=== PATIENT | female | born 1935 | race Two or more races ===

== ENCOUNTER 2017-02-18 12:58 | Emergency (ER) | payer MEDICAID, MEDICARE ==
[2017-02-18] MEDS ORDERED: DEXAMETHASONE 10 MG/ML VIAL PO STA (13:51)
[2017-02-18 13:55] VITALS: BP 175/75
[2017-02-18] MEDS ORDERED: DEXAMETHASONE 10 MG/ML VIAL ONE (13:58)
[2017-02-18] MEDS ORDERED: CHERRY SYRUP 10 ML UDC PO ONE (13:58)
--- NOTE | 2017-02-18 14:01 | ED Physician Documentation ---
History of Present Illness - Stated complaint Stated Complaint: L SIDE/LEG PX - Chief complaint Chief Complaint: Back Pain - Additonal information Additional information: hx from pt 82 female lifted a heavy flower pot and felt left low lateral back pain rad down left lateral leg no chest pain no abd pain no dysuria or incontinence no numbness or weakness no known fever - felt warm did not take temp, afebrile here no hx same not [id number] no recent surgery IV meds etc Review of Systems Constitutional: denies: Fever Cardiac: denies: Chest pain / pressure GI: denies: Abdominal Pain : denies: Dysuria, Incontinent Skin: denies: Rash Musculoskeletal: reports: Back pain, Extremity pain (lateral L thigh) Neurologic: denies: Focal weakness, Numbness Endocrine: denies: Easy bruising / bleeding Immunocompromised: denies: Immunocompromised PD PAST MEDICAL HISTORY - Past Medical History Past Medical History: Yes Endocrine/Autoimmune: Type 2 diabetes - Past Surgical History Past Surgical History: Yes General: 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 - Present Medications Home Medications: Ambulatory Orders Medication Instructions Recorded Confirmed Glipizide 2.5 mg PO BID 02/18/17 02/18/17 Lidocaine Patch 5% [Lidoderm Patch] 1 each TOP DAILY PRN #10 patch 02/18/17 Metformin HCl [Metformin HCl ER] 500 mg PO DAILY 02/18/17 02/18/17 predniSONE [Deltasone] 20 mg PO DAILY 5 Days 02/18/17 - Allergies Allergies/Adverse Reactions: Allergies Allergy/AdvReac Type Severity Reaction Status Date / Time No Known Drug Allergies Allergy Verified 02/18/17 13:22 - Social History Does the pt smoke?: No Smoking Status: Never smoker PD ED PE NORMAL - Vitals Vital signs reviewed: Yes - Neck Neck: Supple, no meningeal sign - Cardiac Cardiac: RRR - Respiratory Respiratory: No respiratory distress, Clear bilaterally - Abdomen Abdomen: Soft, Non tender, Other (no pulsatile mass) - Back Back: No CVA TTP, No spinal TTP (and no redness swelling warmth, no shingles rash) - Extremities Extremities: Normal ROM s pain, No edema, Other (no rash, hip full ROm s pain) - Neuro Neuro: No motor deficit, No sensory deficit, Other (hip flexion knee ext foot dorsi plantar great toe ext 5/5, nl sensation, neg SLR, no clonus) Results - Vitals Vitals: Vital Signs - 24 hr 02/18/17 13:18 Temperature 36.3 C L Heart Rate 60 Respiratory 18 Rate O2 Saturation 100 Oxygen O2 Source Room air PD MEDICAL DECISION MAKING - ED course ED course: age is a sig concern but pain seems to be directly related to lifting and pt has no known cancer, immunocompromise, bleeding disorder etc will tx with low dose steroids to ease nerve pain and lido patches cautioned pt and family to return for any change or worsening of sx Departure - Departure Disposition: 01 Home, Self Care Clinical Impression: Back pain Qualifiers: Back pain location: low back pain Chronicity: acute Back pain laterality: left Sciatica presence: with sciatica Sciatica laterality: sciatica of left side Qualified Code(s): M54.42 - Lumbago with sciatica, left side Sciatica Qualifiers: Laterality: left Qualified Code(s): M54.32 - Sciatica, left side Instructions: ED Sciatica Prescriptions: predniSONE [Deltasone] 20 mg PO DAILY 5 Days Lidocaine Patch 5% [Lidoderm Patch] 1 each TOP DAILY PRN #10 patch PRN Reason: Pain Comments: As we discussed, please return if worse or any new symptoms develop. Please follow up with your PMD for a recheck within 1-2 weeks unless completely better And please get your blood pressure rechecked - it was high today
== END 2017-02-18 14:17 | disposition home or self-care (01) ==
LOC: ED 12:58
DX: M54.42 Lumbago with sciatica, left side (principal); R03.0 Elevated blood-pressure reading, without diagnosis of hypertension; E11.9 Type 2 diabetes mellitus without complications; Z79.84 Long term (current) use of oral hypoglycemic drugs
CPT/HCPCS: 99283; A9270